=== PATIENT | female | born 1990 | race American Indian/Alaskan Native ===

== ENCOUNTER 2016-12-17 11:57 | Outpatient (CLI) | payer MEDICAID ==
[2016-12-17 12:18] VITALS: BP 105/57
== END 2016-12-17 12:45 | disposition home or self-care (01) ==
LOC: TRG 11:57
PROVIDERS: ATTEND Obstetrics & Gynecology
DX: O47.1 False labor at or after 37 completed weeks of gestation (principal); Z3A.38 38 weeks gestation of pregnancy

== ENCOUNTER 2016-12-22 08:37 | Outpatient (CLI) | payer MEDICAID ==
[2016-12-22 08:52] VITALS: BP 117/72
== END 2016-12-22 09:30 | disposition home or self-care (01) ==
LOC: TRG 08:37
PROVIDERS: ATTEND Obstetrics & Gynecology
DX: O47.03 False labor before 37 completed weeks of gestation, third trimester (principal); Z3A.39 39 weeks gestation of pregnancy
CPT/HCPCS: 59025

== ENCOUNTER 2016-12-22 15:30 | Inpatient (IN) | payer MEDICAID ==
[2016-12-22] MEDS ORDERED: LACTATED RINGERS 1,000 ML ONE ×2 (15:53→16:41)
[2016-12-22] MEDS ORDERED: SUBLIMAZE ONE (16:16)
[2016-12-22] MEDS ORDERED: ePHEDrine SULFATE ONE (16:41)
--- NOTE | 2016-12-22 16:42 | History and Physical Report ---
History of Present Illness Date of examination: 12/22/16 Date of admission: 12/22/16 16:10 Chief complaint: Painful contractions History of present illness: 26-year-old @ 39 weeks presents in active labor, she is a [facility] patient. Patient is status post prior section and desires . care has been unremarkable per patient. Patient signed consent in the office on 12/13/2016 and again today on 12/22/2016 Past History Past Medical History: no pertinent history Past Surgical History: breast surgery, section [employer] History: herpes. denies: chlamydia, fibroids, gonorrhea, hepatitis B, hepatitis C, HIV, syphilis Social history: single, full code. denies: smoking, alcohol abuse, prescription drug abuse, IV drug use - Obstetrical History Expected Date of Delivery: 12/26/16 Actual Gestation: 39 Week(s) 3 Day(s) : 3 Para: 1 Medications and Allergies Allergies Allergy/AdvReac Type Severity Reaction Status Date / Time No Known Allergies Allergy Verified 12/22/16 08:56 Home Medications Medication Instructions Recorded Confirmed Last Taken Type Valacyclovir HCl [valACYclovir] 1 tab PO DAILY 12/22/16 12/22/16 12/20/16 History Review of Systems Constitutional: no weight gain, no fever Cardiovascular: no chest pain, no orthopnea, no syncope, no lightheadedness, no shortness of breath, no dyspnea on exertion, no paroxysmal nocturnal dyspnea, no high blood pressure Respiratory: no cough, no hemoptysis, no shortness of breath, no dyspnea on exertion Gastrointestinal: abdominal pain (painful regular contractions), no nausea, no vomiting, no coffee ground emesis Genitourinary: vaginal bleeding (mild bloody show), no vaginal discharge, no leakage of fluid - Vital Signs Vital signs: Vital Signs Temp Pulse Resp BP Pulse Ox 98.1 F 91 H 18 141/91 99 12/22/16 16:00 12/22/16 16:00 12/22/16 16:00 12/22/16 16:00 12/22/16 16:00 Temp Pulse Resp BP Pulse Ox 98.1 F 101 H 18 141/91 99 12/22/16 16:00 12/22/16 16:31 12/22/16 16:25 12/22/16 16:00 12/22/16 16:31 - Physical Exam Abdomen: Positive: normal appearance, soft. Negative: distention, tenderness, guarding, rigidity Genitourinary (Female): Positive: normal external genitalia Uterus: Positive: enlarged (EFW ~ 3600) Adnexa: both: normal Extremities: Positive: normal - Obstetrical FHR: category 1 Cervical Dilatation: 7 station: -2 Results All other labs normal. Assessment and Plan A: 26 y/o at 39 wks desires -Cat 1 tracing P: -Patients last was for breech presentation -We reviewed in detail the risks associated with including 1% risk of rupture and increased morbidity and mortality especially to infant with rupture. Since mother was in the room during the consent process and patient signed and initialed consent from -Obtain routine labs -Epidural now -Expectant management - Patient Problems (1) 39 weeks gestation of Current Visit: Yes Status: Acute (2) Active labor at term Current Visit: Yes Status: Acute (3) Desires (vaginal after ) trial Current Visit: Yes Status: Acute
[2016-12-22] MEDS ORDERED: SUBLIMAZE IV PRN (16:46)
[2016-12-22] MEDS ORDERED: MINERAL OIL PO PRN (16:46)
[2016-12-22] MEDS ORDERED: XYLOCAINE 2% INFILTRATI ONE (16:46)
[2016-12-22] MEDS ORDERED: BRETHINE IVP PRN (16:46)
[2016-12-22] MEDS ORDERED: ePHEDrine SULFATE IV PRN ×2 (16:46→17:06)
[2016-12-22] MEDS ORDERED: BRETHINE SUB-Q PRN (16:46)
[2016-12-22] MEDS ORDERED: ZOFRAN IV PRN ×2 (16:46→19:08)
[2016-12-22 16:56] LABS: Hematocrit 40.4 % (30.3-42.9); Hemoglobin 13.5 gm/dl (10.1-14.3); Mean Corpuscular HGB Conc 33 % (30-34); Mean Corpuscular Hemoglobin 33 pg (28-32); Mean Corpuscular Volume 98 fl (79-97); Platelet Count 221 K/mm3 (140-440); Red Blood Count 4.14 M/mm3 (3.65-5.03); Red Cell Distribution Width 13.6 % (13.2-15.2); White Blood Count 10.6 K/mm3 (4.5-11.0)
[2016-12-22] MEDS ORDERED: LACTATED RINGERS 1,000 ML IV SCH (17:00)
[2016-12-22] MEDS ORDERED: PITOCin/NS 20 UNIT/1000ML DRIP 20 UNITS/1,000 ML BAG IV SCH (17:00)
[2016-12-22] MEDS ORDERED: NARCAN 2 MG/2 ML IV PRN (17:06)
--- NOTE | 2016-12-22 17:06 | Anesthesia Consultation ---
Anesthesia Consult and Med Hx Date of service: 12/22/16 - Airway Anesthetic Teeth Evaluation: Good ROM Head & Neck: Adequate Mental/Hyoid Distance: Adequate Mallampati Class: Class II Intubation Access Assessment: Probably Good - Pulmonary Exam CTA: Yes - Cardiac Exam Cardiac Exam: RRR - Pre-Operative Health Status ASA Pre-Surgery Classification: ASA2 Proposed Anesthetic Plan: Epidural - Pulmonary Hx Asthma: No COPD: No Hx Pneumonia: No - Cardiovascular System Hx Hypertension: No - Central Nervous System Hx Seizures: No Hx Psychiatric Problems: No - Endocrine Hx Renal Disease: No Hx End Stage Renal Disease: No Hx Hypothyroidism: No Hx Hyperthyroidism: No - Hematic Hx Anemia: No Hx Sickle Cell Disease: No - Other Systems Hx Alcohol Use: No
[2016-12-22] MEDS ORDERED: fentaNYL-BUPIV 2 MCG/ML-0.125% 200 MCG/100 ML BAG EPIDURAL SCH (18:00)
[2016-12-22] MEDS ORDERED: METHERGINE IM ONE (18:51)
--- NOTE | 2016-12-22 19:06 | Procedure Note ---
OB Delivery Note - Delivery Date of Delivery: 12/22/16 Surgeon: ALEJANDRO VILLATORO Estimated blood loss: 300cc - Vaginal Delivery presentation: vertex Delivery position: OA Intrapartum events: meconium Delivery induction: none Delivery monitor: external FHT, external uterine Route of delivery: Delivery placenta: spontaneous Delivery cord: nuchal cord, 3 umbilical vessels Episiotomy: none Delivery laceration: 2nd degree Delivery repair: vicryl Anesthesia: epidural - A at 1 minute: 7 at 5 minutes: 8 Gender: Female (Del # 18:44, weight is 7#14 or 3580 g)
[2016-12-22] MEDS ORDERED: METHERGINE IM PRN (19:08)
[2016-12-22] MEDS ORDERED: MILK OF MAGNESIA PO PRN (19:08)
[2016-12-22] MEDS ORDERED: DULCOLAX PR PRN (19:08)
[2016-12-22] MEDS ORDERED: PHENERGAN PO PRN (19:08)
[2016-12-22] MEDS ORDERED: LANSINOH TP PRN (19:08)
[2016-12-22] MEDS ORDERED: ANUCORT-HC PR PRN (19:08)
[2016-12-22] MEDS ORDERED: PHENERGAN PR PRN (19:08)
[2016-12-22] MEDS ORDERED: TYLENOL PO PRN (19:08)
[2016-12-22] MEDS ORDERED: BENADRYL PO PRN (19:08)
[2016-12-22] MEDS ORDERED: TUCKS PAD TP PRN (19:08)
[2016-12-22] MEDS ORDERED: DERMOPLAST TP PRN (19:08)
[2016-12-22] MEDS ORDERED: MOTRIN PO SCH (20:00)
[2016-12-22] MEDS ORDERED: SODIUM CHLORIDE FLUSH SYRINGE 10 ML IV NR (20:00)
[2016-12-22] MEDS ORDERED: SENOKOT S PO SCH (20:00)
[2016-12-22] MEDS: NORCO 5/325 PO PRN (21:24)
[2016-12-22] MEDS ORDERED: COLACE PO SCH (22:00)
[2016-12-22] MEDS ORDERED: FEOSOL PO SCH (22:00)
[2016-12-23 07:37] LABS: Hematocrit 34.9 % (30.3-42.9); Hemoglobin 11.7 gm/dl (10.1-14.3)
[2016-12-23] MEDS: NORCO 5/325 PO PRN ×2 (08:40→16:25)
--- NOTE | 2016-12-23 09:20 | Progress Note ---
Assessment and Plan A: PPD 1 S/P VSS P: Routine PP care Contraceptions plans undecided. Will order Depo for d/c D/C today or tomorrow Subjective - Subjective Date of service: 12/23/16 Principal diagnosis: PPD1 Interval history: 26-year-old @ 39 weeks presented in active labor, she is a [facility]/ [employer] patient. care has been unremarkable per patient. Patient signed consent in the office on 12/13/2016 and again on 12/22/2016. Successful delivery on 12/22/2016 @ 1844 with 2nd degree perineal laceration. Patient reports: appetite normal, voiding normally, pain well controlled, ambulating normally : doing well Objective - Vital Signs Latest vital signs: Vital Signs Temp Pulse Pulse Resp BP BP Pulse Ox 12/23/16 04:15 98.4 F 76 20 132/81 12/23/16 02:30 99.2 F 86 20 133/54 12/23/16 00:00 98.2 F 89 20 136/85 12/22/16 20:30 98.7 F 87 20 157/95 12/22/16 20:10 85 18 157/88 12/22/16 20:06 85 157/88 12/22/16 19:45 104 H 18 167/84 12/22/16 19:39 104 H 167/84 12/22/16 19:30 89 18 147/88 12/22/16 19:23 89 147/88 12/22/16 19:16 106 H 93 12/22/16 19:15 100 H 18 152/67 12/22/16 19:12 103 H 100 12/22/16 19:08 51 L 152/67 12/22/16 19:07 113 H 100 12/22/16 19:02 101 H 100 12/22/16 19:00 97.8 F 100 H 100 H 18 147/79 147/79 100 12/22/16 18:56 94 H 100 12/22/16 18:47 93 H 142/78 12/22/16 18:45 98.0 F 142/78 12/22/16 18:41 96 H 100 12/22/16 18:36 95 H 100 12/22/16 18:31 93 H 100 12/22/16 18:26 94 H 100 12/22/16 18:23 126 H 116/78 12/22/16 18:21 129 H 73 L 12/22/16 18:16 96 H 100 12/22/16 18:11 90 100 12/22/16 18:09 96 H 110/71 12/22/16 18:06 86 100 12/22/16 18:01 88 100 12/22/16 17:56 79 100 12/22/16 17:53 77 121/61 12/22/16 17:51 92 H 100 12/22/16 17:46 86 100 12/22/16 17:41 84 100 12/22/16 17:39 79 106/58 12/22/16 17:36 93 H 100 12/22/16 17:31 87 99 12/22/16 17:29 88 122/67 12/22/16 17:26 102 H 100 12/22/16 17:22 127/81 12/22/16 17:21 112 H 96 12/22/16 17:20 113 H 92 12/22/16 17:19 111 H 130/72 12/22/16 17:17 101 H 135/81 12/22/16 17:16 94 H 100 12/22/16 17:15 88 145/81 12/22/16 17:11 106 H 148/84 100 12/22/16 17:09 100 H 149/94 12/22/16 17:08 115 H 160/98 12/22/16 17:06 115 H 156/93 100 12/22/16 17:01 97 H 100 12/22/16 16:56 107 H 100 12/22/16 16:51 101 H 100 12/22/16 16:46 120 H 98 12/22/16 16:41 98 H 99 12/22/16 16:36 102 H 97 12/22/16 16:31 101 H 99 12/22/16 16:26 109 H 100 12/22/16 16:25 18 12/22/16 16:00 98.1 F 91 H 18 141/91 99 Intake and Output 12/22/16 12/23/16 12/23/16 22:59 06:59 14:59 Intake Total 240 600 Output Total 800 1300 Balance -560 -700 Intake: Oral 240 600 Output: Urine 800 1300 Void 800 1300 Other: Total, Intake Amount 240 240 Total, Output Amount 800 700 Weight 5 lb 6 oz Estimated Blood Loss 300 - Exam Cardiovascular: Present: Regular rate Lungs: Present: Normal air movement Vulva: both: normal (scant lochia) Uterus: Present: fundal height below umbilicus Extremities: Present: normal Deep Tendon Reflex Grade: Normal +2 - Labs Labs: Abnormal lab results 12/22/16 Range/Units 16:09 MCV 98 H (79-97) fl MCH 33 H (28-32) pg - Allied health notes Allied health notes reviewed: nursing
[2016-12-23] MEDS ORDERED: DEPO-PROVERA (CONTRACEPTION) IM NR (09:30)
--- NOTE | 2016-12-23 09:32 | Discharge Summary ---
Providers - Providers Date of Admission: 12/22/16 16:10 Date of discharge: 12/23/16 Attending physician: SHARON BARCENAS MD Primary care physician: SHARON BARECNAS MD Hospitalization Reason for admission: active labor Delivery: Laceration: 2nd degree Other procedures: none complications: none, pelvic infection [place] baby: female Hospital course: uneventful Condition at discharge: Good Disposition: DISCHARGED TO HOME OR SELFCARE Plan - Discharge Medications Prescriptions: HYDROcodone/APAP 5-325 [[place] 5/325] 1 each PO Q6HR PRN #10 tablet PRN Reason: Pain Ibuprofen [Motrin 600 MG tab] 600 mg PO Q8H PRN #30 tablet PRN Reason: Pain Multivitamin with Iron [Multivitamins with Iron] 1 each PO DAILY #30 tablet - Provider Discharge Summary Activity: routine, no sex for 6 weeks, no heavy lifting 4 weeks, no strenuous exercise Diet: routine Instructions: routine Additional instructions: [] Smoking cessation referral if applicable(refer to patient education folder for contact #) [] Refer to [facility]'s [facility] Booklet Call your doctor immediately for: * Fever > 100.5 * Heavy vaginal bleeding ( >1 pad per hour) * Severe persistent headache * Shortness of breath * Reddened, hot, painful area to leg or breast * Drainage or odor from incision. * Keep incision clean and dry at all times and follow doctor's instructions regarding bathing/showering - Follow up plan Follow up: [facility] [Provider Group] - 6 Weeks
[2016-12-23] MEDS ORDERED: PRENATAL VITAMIN PO SCH (10:00)
--- NOTE | 2016-12-23 10:31 | Progress Note ---
Subjective Date of service: 12/23/16 Principal diagnosis: PPD1 Interval history: 1st day after normal vaginal delivery Patient is in the bed, comfortable. Pain is well under control. Ambulated well. No residual neurological deficit. No anesthesia complications Objective - Constitutional Vitals: Vital Signs - 12hr 12/23/16 12/23/16 12/23/16 00:00 02:30 04:15 Temperature 98.2 F 99.2 F 98.4 F Pulse Rate [ 89 86 76 From Monitor] Respiratory 20 20 20 Rate Blood Pressure 136/85 133/54 132/81 [Left Arm] 12/23/16 09:27 Temperature 97.8 F Pulse Rate [ 82 From Monitor] Respiratory 20 Rate Blood Pressure 126/81 [Left Arm] - Labs CBC & Chem 7: 12/23/16 06:46 Labs: Abnormal lab results 12/22/16 Range/Units 16:09 MCV 98 H (79-97) fl MCH 33 H (28-32) pg
[2016-12-23 16:40] VITALS: BP 119/95
== END 2016-12-23 20:48 | disposition home or self-care (01) | DRG 775 ==
LOC: TRG 15:30 → LD 15:30 → TRG 16:09 → LD 16:10 → OB 20:42
PROVIDERS: ADMIT Obstetrics & Gynecology; ATTEND Obstetrics & Gynecology
PROC: 0KQM0ZZ Repair Perineum Muscle, Open Approach (ICD-10-PCS; principal; 2016-12-22)
PROC: 00HU33Z Insertion of Infusion Device into Spinal Canal, Percutaneous Approach (ICD-10-PCS; principal; 2016-12-22)
PROC: 10E0XZZ Delivery of Products of Conception, External Approach (ICD-10-PCS; principal; 2016-12-22)
PROC: 3E0S3CZ (ICD-10-PCS; principal; 2016-12-22)
DX: O69.81X0 Labor and delivery complicated by cord around neck, without compression, not applicable or unspecified (principal); O70.1 Second degree perineal laceration during delivery; O77.0 Labor and delivery complicated by meconium in amniotic fluid; O34.211 Maternal care for low transverse scar from previous cesarean delivery; Z3A.39 39 weeks gestation of pregnancy; Z37.0 Single live birth
CPT/HCPCS: 36415; 85014; 85018; 85027; 86850; 86900; 86901; 99211; G0463; J2210; J2405; J2590; J3010; J7120